=== PATIENT | male | born 2000 | race Caucasian/White ===

== ENCOUNTER 2023-06-21 15:36 | Outpatient (AMB) | payer OTHER, SELFPAY ==
--- NOTE | 2023-06-21 15:39 | AM.OFFWIN_ITS ---
Intake Vital Signs 06/21/23 15:40 Height 6 ft BP 102/60 Blood Pressure Location Lt brachial Position Sitting Pulse 68 Pulse Source Pulse Oximeter Temp 97.7 F Temp Source Temporal Artery Scan Pulse Oximetry (%) 98 Oxygen Delivery Method Room Air Intake Visit Reasons: [employer]/ morning sickness Intake Note: Pt is here c/o feeling nauouse throughout the day and vomiting early mornings. Pt is requesting a work note for 06/20/23 and 06/21/23. Allergies No Known Allergies Allergy (Unverified 06/21/23 15:41) Do you need a note to return to daycare/school/sports/work: No HPI HPI Comments History of Present Illness Details The patient presents to urgent care for evaluation of nausea vomiting and epigastric discomfort. He reports that when he wakes up in the morning he has these symptoms. He states his precipitated by drinking coffee as well. Patient states that prior to bed he often has cereal or peanut butter and jelly. He is not usually eating anything spicy. He has been taking Tums on occasion without much relief. Patient reports that about 8 months ago he had a similar episode with epigastric discomfort followed by nausea and vomiting in the mornings and was treated with Zofran at a local urgent care. He reports that this was helpful. Physical Exam Vital Signs: Last Vital Signs Temp 97.7 F 06/21/23 15:40 Pulse 68 06/21/23 15:40 BP 102/60 06/21/23 15:40 Pulse Ox 98 06/21/23 15:40 Oxygen Delivery Method Room Air 06/21/23 15:40 Assessment & Plan Assessment & Plan (1) GERD (gastroesophageal reflux disease): Code(s): K21.9 - Gastro-esophageal reflux disease without esophagitis Plan Symptoms sound consistent with reflux disease. Will start patient on Pepcid and recommend he take it at night before bed to help alleviate the symptoms that occur in the morning. Patient was instructed to avoid triggering foods such as alcohol coffee and spicy foods. Medications: New famotidine (Pepcid) 20 mg PO BEDTIME 30 tabs 0RF Coding Level of Care Code Est Pt Level 3 (22897) Diagnoses GERD (gastroesophageal reflux disease) K21.9
[2023-06-21 15:40] VITALS: BP 102/60; PULSE 68; TEMP 36.5; O2SAT 98
== END 2023-06-21 15:58 | disposition home or self-care (01) ==
PROVIDERS: PCP Nurse Practitioner Pediatrics; Visit Provider Emergency Medicine
DX: K21.9 Gastro-esophageal reflux disease without esophagitis (principal)
CPT/HCPCS: 99213